=== PATIENT | female | born 1975 | race Caucasian/White ===

== ENCOUNTER 2016-05-01 14:39 | Emergency (ER) | payer OTHER ==
--- NOTE | 2016-05-01 14:48 | EDPHY ---
HPI/HX/ROS/PE/MDM Narrative: CHIEF COMPLAINT: Possible allergic reaction HPI: The patient is a 41 y/o female arriving emergently via EMS with a possible allergic reaction. Her only known allergy is to Bacitracin. She was eating chicken stew and a salad this afternoon when she began to notice "intense itching" in her ears and throat. EMS reports she had significant urticaria on her chest with silent breath sounds on their arrival. They administered 0.3mg IM epinephrine, 125mg IV Solumedrol, and a continuous albuterol nebulizer prior to arrival. She arrives in tripod position, but is able to speak in full sentences. She complains of throat tightness, but is able to swallow and talk without difficulty. She notes she is concerned about being intubated because she recently had a patient intubated. She also has been sick with upper respiratory symptoms for the last few weeks. REVIEW OF SYSTEMS: Aside from elements discussed in the HPI, a comprehensive 10-point review of systems was reviewed and is negative. PMH: Anxiety, depression SOCIAL HISTORY: Psychiatrist. at bedside. PHYSICAL EXAM: General:Patient is alert, shaking, in no respiratory distress. ENT:Eyes are normal to inspection. ENT inspection normal. No angioedema. Uvula midline. No stridor. Neck: Normal inspection. Full range of motion. Respiratory:No respiratory distress. Breath sounds normal bilaterally. Speaking in full sentences. Cardiovascular: Regular rate and rhythm. Strong peripheral pulses. Normal cap refill. Abdomen:The abdomen is nontender to palpation. There are no peritoneal signs. There are normal bowel sounds. Back: Normal to inspection. No tenderness to palpation. Skin: Normal color. No rash or urticaria. Warm and dry. Extremities: Normal appearance. Full range of motion. Neuro: Oriented x3. Normal motor function. Normal sensory function. ED Course: 1439: Met EMS upon arrival. They administered 0.3mg epinephrine, 125mg Solumedrol, and a continuous nebulizer treatment prior to arrival. Her vitals have remained WNL during transport and upon arrival in the ED are 100%, HR 119, BP 151/90. 1441: Nebulizer discontinued. Sats remain at 100%. Plan for 50mg IV Benadryl, 0.5mg IV Ativan, 4mg IV Zofran, and 1L IV NS. 1446: Reevaluated patient after medication administration. She states, "I feel like I can breath a lot better now." 1500: Additional 0.5mg IV Ativan administered due to continued shakiness. 1505: Reevaluated patient. She feels improved and is shaking less. No respiratory distress. She remains mildly tachycardic at 102. Plan to continue reevaluations periodically and assess for any rebound reaction. MDM: This patient presents with what appears to be a very unusual story of apparent anaphylaxis. The patient was eating food when she suddenly developed an intense itching sensation in her throat and ears. Paramedics described that the patient had diffuse urticaria, but on arrival to the emergency department less than 10 minutes after contact, the patient has no rash whatsoever. Paramedics also tell me that the patient has a history of being intubated twice before in the past but the patient states this is not true. It is unclear whether this represents true anaphylaxis or some other unusual reaction. The patient was treated with IV Solu-Medrol prior to arrival. We will discharge her home with a prescription for EpiPen and prednisone. The patient was observed in the emergency department for several hours with no return of symptoms. At time of discharge, her airway is normal, her voice is normal, her vital signs are stable and there are no clinical findings of airway or hemodynamic compromise. General Initial Vital Signs: Initial Vital Signs Heart Rate 108 H 05/01/16 15:00 Respiratory Rate 18 05/01/16 15:00 Blood Pressure 154/76 H 05/01/16 15:00 O2 Sat (%) 98 05/01/16 15:00 O2 Delivery Mode Room Air Allergies/Adverse Reactions: bacitracin Allergy (Verified 05/01/16 15:04) Home Medications: Medication Instructions Recorded EPINEPHRINE [EPIPEN] 0.3 mg IM ONCE #2 syr 05/01/16 Gabapentin 05/01/16 Temazepam [Restoril 15 MG (*)] 15 mg PO HSPRN PRN #10 cap 05/01/16 predniSONE 60 mg PO DAILY #9 tab 05/01/16 Departure - Departure Disposition: Home, Routine, Self-Care Clinical Impression: Allergic reaction Condition: Good Instructions: General Allergic Reaction (ED) Additional Instructions: Follow-up with your primary doctor within 72 hours. Use [id number] Benadryl as directed for itching. Return to the Emergency Department for shortness of breath, difficulty swallowing, difficulty breathing, worsening of rash, fever or other worsening of condition. When symptoms have completely subsided, follow up with an field adjuster soon as possible to determine the cause of the allergic reaction. Use EpiPen in case of allergic emergency. Referrals: Patient,NotPresent [Unknown] - As per Instructions Prescriptions: EPINEPHRINE [EPIPEN] 0.3 mg IM ONCE #2 syr predniSONE 60 mg PO DAILY #9 tab Temazepam [Restoril 15 MG (*)] 15 mg PO HSPRN PRN #10 cap PRN Reason: Sleep/Insomnia Report Scribed for: Dg Toth Report Scribed by: Rosemary Marques Date of Report: 05/01/16 Time of Report: 14:52 Physician Review and Approval Statement: Portions of this note were transcribed by an ED scribe. I personally performed the history, physical exam, and medical decision making; and confirm the accuracy of the information in the transcribed note.
[2016-05-01 15:07] VITALS: TEMP 97.5
[2016-05-01] MEDS ORDERED: LORazepam 2 MG/ML INJ IVP ONE (15:11)
[2016-05-01] MEDS ORDERED: ONDANSETRON 4 MG/2 ML VIAL IVP ONE (15:11)
[2016-05-01 17:14] VITALS: RESP 16
[2016-05-01 18:11] VITALS: BP 112/70; PULSE 81; O2SAT 98
== END 2016-05-01 18:11 | disposition home or self-care (01) ==
DX: T78.40XA Allergy, unspecified, initial encounter (principal)
CPT/HCPCS: 96374

== ENCOUNTER 2016-05-03 07:57 | Emergency (ER) | payer OTHER ==
--- NOTE | 2016-05-03 08:01 | EDPHY ---
H & P Time Seen by Provider: 05/03/16 08:00 HPI/ROS: Chief complaint. Allergic reaction HPI. 41-year-old female here by EMS after having an allergic reaction this morning. She used an EpiPen and called EMS. They found the patient with some redness to her neck and shoulders and a bit of stridor. An IV was placed she was given Solu-Medrol and Benadryl IV as well as another round of epinephrine intramuscularly. She was seen in our emergency department 2 days ago for allergic reaction. She is being treated with prednisone. 2 days ago it occurred after she was eating chicken stew and a salad in a restaurant although she has had this food before. Today she was having breakfast with her son and had some cereal and milk which she has had before and then began to have sense of itchiness and tightness in her throat. She was concerned her throat might be progressively swelling shut and used her EpiPen. She has had panic attacks in the past but feels that this is quite different. Her symptoms are largely resolved at this point though she shaky from the epinephrine ROS Constitutional. no fever/chills, no weakness Eyes. no problems with vision ENT. Throat itching and swelling in tightness Cardiovascular. no chest pain Respiratory. Some sense of shortness of breath Abdominal. no abdominal pain, no nausea/vomiting, no diarrhea . no problems urinating MS. no calf pain/swelling, no neck/back pain, no joint pain Skin. Erythematous rash to the upper chest and neck Lymph. no swollen glands Neuro. no headache, no dizziness, no difficulty walking or with speech Past Medical/Surgical History: Anxiety and panic attacks; foot cellulitis Social History: , nonsmoker, no alcohol. Visiting from [place]. Works as a psychiatrist Smoking Status: Never smoked Physical Exam: General Appearance: Alert pleasant well-developed female mild distress vital signs show tachycardia; tremulous from the epinephrine Eyes: Pupils equal and round no pallor or injection. ENT, pharynx mildly injected without exudate. No evidence for swelling Respiratory: There are no retractions, lungs are clear to auscultation. Cardiovascular: Regular rate and rhythm. Gastrointestinal: Abdomen is soft and nontender, no masses, bowel sounds normal. Neurological: Awake and alert, sensory and motor exams grossly normal. Skin: Warm and dry, no rashes. Musculoskeletal: Neck is supple nontender. Extremities symmetrical, full range of motion. Psychiatric: Patient is oriented X 3, there is no agitation. Constitutional: Initial Vital Signs Temperature (C) 36.7 C 05/03/16 07:57 Heart Rate 130 H 05/03/16 07:57 Respiratory Rate 22 H 05/03/16 07:57 Blood Pressure 128/100 H 05/03/16 07:57 O2 Sat (%) 100 05/03/16 07:57 O2 Delivery Mode Room Air Allergies/Adverse Reactions: bacitracin Allergy (Verified 05/01/16 15:04) Home Medications: Medication Instructions Recorded EPINEPHRINE [EPIPEN] 0.3 mg IM ONCE #2 syr 05/01/16 Gabapentin 05/01/16 Temazepam [Restoril 15 MG (*)] 15 mg PO HSPRN PRN #10 cap 05/01/16 predniSONE 60 mg PO DAILY #9 tab 05/01/16 EPINEPHRINE [EPIPEN] 0.3 mg IM ONCE #2 syr 05/03/16 Medical Decision Making ED Course/Re-evaluation: Patient is speaking in full sentences. She is drinking water without difficulty Re-evaluation at 7:20 p.m. a.m. patient is stable. Again she is speaking in full sentences. There is no stridor. She is handling her secretions. She was concerned that her sore throat tightening might be coming back but I looked in her throat again and there is no findings of swelling. Patient and I discussed treatment plan including criteria for return and importance of follow-up and further evaluation. She expresses understanding and agreement Differential Diagnosis: I considered acute allergic reaction and I am unable to find a common link between her symptoms 2 days ago and today. I considered anaphylaxis. I have considered anxiety is well. Plan will be follow up with relocation specialist Departure - Departure Disposition: Home, Routine, Self-Care Clinical Impression: Allergic reaction Qualifiers: Encounter type: initial encounter Qualified Code(s): T78.40XA - Allergy, unspecified, initial encounter Condition: Good Instructions: Anaphylaxis (ED) Additional Instructions: Continue using the prednisone. Benadryl as needed. EpiPen for throat swelling difficulty breathing. Return for worsening symptoms. Follow up with relocation specialist upon return home to [place] Referrals: NONE *PRIMARY CARE P,. [Primary Care Provider] - As per Instructions Prescriptions: EPINEPHRINE [EPIPEN] 0.3 mg IM ONCE #2 syr
[2016-05-03 08:14] VITALS: TEMP 98.1
[2016-05-03 10:23] VITALS: BP 107/60; PULSE 85; RESP 19; O2SAT 96
== END 2016-05-03 11:00 | disposition home or self-care (01) ==
LOC: EDUNIT#
DX: T78.40XA Allergy, unspecified, initial encounter (principal)

== ENCOUNTER 2016-05-03 13:51 | Emergency (ER) | payer OTHER ==
--- NOTE | 2016-05-03 14:00 | EDPHY ---
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 She states that on Tuesday while eating at a restaurant she developed urticaria and itchiness in her throat. EMS responded and gave epinephrine and by the time she arrived in the emergency department 10 minutes later she had absolutely no rash at all. She was started on a course of steroids and Benadryl. She did well for 3 days but then this morning felt that she was having some scratchy throat again in used her epinephrine and called paramedics and came to the emergency department. Again there were no symptoms on arrival in the emergency department. There was some question of an exacerbation of her anxiety. She was discharged home. She returns again this afternoon stating that her throat felt scratchy. She self administered epinephrine and was asymptomatic by the time paramedics arrived other than tremulous likely from the epinephrine and anxiety. EMS gave her Solu-Medrol and Benadryl. She has not been on Benadryl at home. REVIEW OF SYSTEMS: Constitutional: denies: chills, fever, recent illness, recent injury EENTM: denies: blurred vision, double vision, nose congestion Respiratory: denies: cough, shortness of breath Cardiac: denies: chest pain, irregular heart rate, lightheadedness, palpitations Gastrointestinal/Abdominal: denies: abdominal pain, diarrhea, nausea, vomiting, blood streaked stools Genitourinary: denies: dysuria, frequency, hematuria, pain Musculoskeletal: denies: joint pain, muscle pain Skin: See HPI Neurological: denies: headache, numbness, paresthesia, tingling, dizziness, weakness Hematologic/Lymphatic: denies: blood clots, easy bleeding, easy bruising Immunologic/allergic: denies: HIV/AIDS, transplant EXAM: GENERAL: Well-appearing, well-nourished and in no acute distress. HEAD: Atraumatic, normocephalic. EYES: Pupils equal round and reactive to light, extraocular movements intact, sclera anicteric, conjunctiva are normal. ENT: TMs normal, nares patent, oropharynx clear without exudates. Moist mucous membranes. NECK: Normal range of motion, supple without lymphadenopathy or JVD. LUNGS: Breath sounds clear to auscultation bilaterally and equal. No wheezes rales or rhonchi. HEART: Regular rate and rhythm without murmurs, rubs or gallops. ABDOMEN: Soft, nontender, normoactive bowel sounds. No guarding, no rebound. No masses appreciated. BACK: No CVA tenderness, no spinal tenderness, step-offs or deformities EXTREMITIES: Normal range of motion, no pitting or edema. No clubbing or cyanosis. NEUROLOGICAL: Cranial nerves II through XII grossly intact. Normal speech, normal gait. 5/5 strength, normal movement in all extremities, normal sensation PSYCH: Normal mood, normal affect. SKIN: Warm, dry, normal turgor, no visible rashes or lesions. Source: Patient, EMS, Old records Exam Limitations: No limitations - Medical/Surgical History Hx Asthma: No Hx Chronic Respiratory Disease: No Hx Diabetes: No Hx Cardiac Disease: No Hx Renal Disease: No Hx Cirrhosis: No Hx Alcoholism: No Hx HIV/AIDS: No Hx Splenectomy or Spleen Trauma: No Other PMH: healthy--never had allergic reaction prior unknown trigger. pmh- restless leg syndrome - Family History Significant Family History: No pertinent family hx - Social History Smoking Status: Never smoked Alcohol Use: Sober Drug Use: None Constitutional: Initial Vital Signs Temperature (C) 36.8 C 05/03/16 14:00 Heart Rate 108 H 05/03/16 14:00 Respiratory Rate 20 05/03/16 14:00 Blood Pressure 141/86 H 05/03/16 14:00 O2 Sat (%) 98 05/03/16 14:00 O2 Delivery Mode Room Air Allergies/Adverse Reactions: bacitracin Allergy (Verified 05/01/16 15:04) Home Medications: Medication Instructions Recorded EPINEPHRINE [EPIPEN] 0.3 mg IM ONCE #2 syr 05/01/16 Gabapentin 05/01/16 Temazepam [Restoril 15 MG (*)] 15 mg PO HSPRN PRN #10 cap 05/01/16 predniSONE 60 mg PO DAILY #9 tab 05/01/16 EPINEPHRINE [EPIPEN] 0.3 mg IM ONCE #2 syr 05/03/16 LORazepam [Ativan 1 mg (RX)] 1 mg PO Q6-8PRN PRN #10 tab 05/03/16 diphenhydrAMINE [Benadryl 50 MG 50 mg PO Q4-6PRN PRN #30 cap 05/03/16 (OTC)] methylPREDNISolone [Medrol Dose 1 each PO AD #1 ea 05/03/16 Cecilio] Medical Decision Making ED Course/Re-evaluation: Patient has been adequately medicated and possibly overmedicated. I feel that there is a large anxiety component. Do not see any evidence of allergic reaction on my exam but she was treated prior to arrival. Paramedics did not see any evidence of allergic reaction when they arrived either. I will start the patient back on daily Benadryl and a steroid taper. 3:00 p.m. patient is feeling completely better. Her tremors have resolved. No return of the rash or scratchiness. I will place her back on Benadryl and a steroid taper. She will follow up with an rolled materials worker when this is resolved. She understands and agrees with this plan. I am hesitant to refill her epinephrine because I feel that she may be using It inappropriately. We decided to monitor the patient a little longer because she was concerned. She did have some return of the scratchiness of her throat but did not have any other symptoms and it resolved with Ativan. She requested Ativan prescription. Differential Diagnosis: Partial list of the Differential diagnosis considered include but were not limited to; allergic reaction, anxiety, anaphylaxis and although unlikely based on the history and physical exam, I also considered infection, substance abuse. I discussed these differential diagnoses and the plan with the patient as well as the usual and expected course. The patient understands that the diagnosis is provisional and that in medicine we are not always correct and that further workup is often warranted. Usual and customary warnings were given. All of the patient's questions were answered. The patient was instructed to return to the emergency department should the symptoms at all worsen or return, otherwise to followup with the physician as we discussed. Departure - Departure Disposition: Home, Routine, Self-Care Clinical Impression: Anxiety Allergic reaction Qualifiers: Encounter type: initial encounter Qualified Code(s): T78.40XA - Allergy, unspecified, initial encounter Condition: Fair Instructions: Anxiety (ED), General Allergic Reaction (ED) Referrals: Will Pacheco MD [Medical Doctor] - As per Instructions Prescriptions: diphenhydrAMINE [Benadryl 50 MG (OTC)] 50 mg PO Q4-6PRN PRN #30 cap PRN Reason: Itching LORazepam [Ativan 1 mg (RX)] 1 mg PO Q6-8PRN PRN #10 tab PRN Reason: *Anxiety/Agitation/Insomnia methylPREDNISolone [Medrol Dose Cecilio] 1 each PO AD #1 ea
[2016-05-03 14:03] VITALS: TEMP 98.2
[2016-05-03 17:36] VITALS: BP 130/83; PULSE 98; RESP 18; O2SAT 96
== END 2016-05-03 17:38 | disposition home or self-care (01) ==
LOC: EDUNIT#
DX: T78.40XA Allergy, unspecified, initial encounter (principal); F41.9 Anxiety disorder, unspecified